=== PATIENT | female | born 1995 | race Caucasian/White ===

== ENCOUNTER 2016-12-09 15:52 | Emergency (ER) | payer MEDICAID ==
[~2016-12-09] VITALS: Ht 154.9 cm; Wt 43.3 kg
[2016-12-09 16:02] VITALS: BP 101/67
[2016-12-09] MEDS ORDERED: SODIUM CHLORIDE 0.9% 1,000ML IVBOLUS ONE (16:30)
[2016-12-09 16:38] LABS: HEMATOCRIT 40.3 % (34.6-47.8); HEMOGLOBIN 13.7 g/dL (11.7-16.4); WHITE BLOOD COUNT 10.3 x10^3/uL (3.4-10)
[2016-12-09 16:49] LABS: BLOOD UREA NITROGEN 12 mg/dL (7-18)
[2016-12-09 17:03] LABS: PATH.CAST-FLAG NOT PRESENT; SPERM-FLAG NOT PRESENT; SRC-FLAG NOT PRESENT; XTAL-FLAG NOT PRESENT; YLC-FLAG NOT PRESENT
== END 2016-12-09 17:33 | disposition home or self-care (01) ==
LOC: ED 17:32
DX: J20.9 Acute bronchitis, unspecified (principal); D72.829 Elevated white blood cell count, unspecified; J01.00 Acute maxillary sinusitis, unspecified; R73.9 Hyperglycemia, unspecified; J45.909 Unspecified asthma, uncomplicated; B96.89 Other specified bacterial agents as the cause of diseases classified elsewhere
CPT/HCPCS: 36415; 71010; 80048; 81001; 82040; 84703; 85025; 86308; 87086; 93005; 99285

== ENCOUNTER → 2017-12-13 | Outpatient (CLI) | payer MEDICAID | END | disposition home or self-care (01) | LOC: CFH 08:37 | PROVIDERS: ATTEND Nurse Practitioner Family | DX: G44.229 Chronic tension-type headache, not intractable (principal) | CPT/HCPCS: 70551 ==